=== PATIENT | female | born 1970 | race Two or more races ===

== ENCOUNTER 2019-05-01 16:03 | Day surgery (SDC) | payer OTHER ==
[2019-05-01 18:28] VITALS: TEMP 98.1
[2019-05-01] MEDS ORDERED: FERRIC CARBOXYMALTOSE 750 MG in SODIUM CHLORIDE 250 ML IVPB ONE (18:30)
[2019-05-01 20:01] VITALS: BP 99/60; PULSE 67
== END 2019-05-01 20:02 | disposition home or self-care (01) ==
LOC: JINFUSION 16:03 → J7W 17:54 → JINFUSION 20:02
PROVIDERS: ATTEND Family Medicine
DX: D50.9 Iron deficiency anemia, unspecified (principal)
CPT/HCPCS: 96365; J1439

== ENCOUNTER 2019-05-08 17:44 | Day surgery (SDC) | payer OTHER ==
[2019-05-08] MEDS ORDERED: FERRIC CARBOXYMALTOSE 750 MG in SODIUM CHLORIDE 250 ML IVPB ONE (17:45)
[2019-05-08 18:19] VITALS: TEMP 97.5
[2019-05-08 19:03] VITALS: BP 97/59; PULSE 75
== END 2019-05-08 19:13 | disposition home or self-care (01) ==
LOC: JINFUSION 17:44 → J7W 17:49 → JINFUSION 19:13
PROVIDERS: ATTEND Family Medicine
PROC: 3E033GC Introduction of Other Therapeutic Substance into Peripheral Vein, Percutaneous Approach (ICD-10-PCS; principal; 2019-05-08)
DX: D50.9 Iron deficiency anemia, unspecified (principal)
CPT/HCPCS: 96365; J1439

== ENCOUNTER 2020-01-10 18:42 | Emergency (ER) | payer OTHER ==
[2020-01-10 18:54] VITALS: BP 113/63; PULSE 97; TEMP 97.6; BMI 31.6
[2020-01-10] MEDS ORDERED: ACETAMINOPHEN 1000 MG/100 ML VIAL (NON FORMULARY) IVPB ONE (18:55)
--- NOTE | 2020-01-10 18:56 | PDOC ---
Rapid Medical Evaluation Chief Complaint: Vaginal Bleeding Time Seen by Provider: 01/10/20 18:50 Medical Evaluation: Allergies Allergy/AdvReac Type Severity Reaction Status Date / Time No Known Allergies Allergy Verified 05/01/19 17:50 01/10/20 18:50 Pt presents for heavy vaginal bleeding starting yesterday. She states the bleeding got worse today at 4pm. States she is soaking 5 pads per hour. Sent in by her WATER PUMP SERVICER for evaluation. Exam: suprapubic pain/cramping. Orders: labs, IV, TVUS Pt to proceed to the ER for further evaluation Discharge Disposition - Diagnosis Vaginal bleeding - Referrals - Patient Instructions - Post Discharge Activity
--- NOTE | 2020-01-10 20:13 | PDOC ---
History of Present Illness - General Chief Complaint: Vaginal Bleeding Stated Complaint: VAG BLEEDING 5 pads in one hour Time Seen by Provider: 01/10/20 18:50 - History of Present Illness Initial Comments: 01/10/20 20:13 HPI: 49 y/o F with hx of hypothyroid, anemia, fibroid presenting with lower abd cramps and vaginal bleeding x1 day. Her symptoms were mild yday but today she woke up at 4am with significant pain in the BL lower abd with rad to the back that was similar to her menstrual pain but unrelieved with tylenol. She also had significant vag bleeding throughout the day soaking 10pads; reports clots and bright red blood. Also reports LH but not chest pain, SOB, VALLADARES, dysuria, change in BM. PMHx: as noted above ROS: as noted SHx: Denies tobacco use; no alcohol use; no rec drugs Allergies: NKDA ROS: GENERAL/CONSTITUTIONAL: No fever or chills. No weakness. HEAD, EYES, EARS, NOSE AND THROAT: No change in vision. No ear pain or discharge. No sore throat. CARDIOVASCULAR: No chest pain or shortness of breath RESPIRATORY: No cough, wheezing, or hemoptysis. GASTROINTESTINAL: No nausea, vomiting, diarrhea or constipation. GENITOURINARY: No dysuria, frequency, or change in urination. MUSCULOSKELETAL: No joint or muscle swelling or pain. No neck or back pain. SKIN: No rash NEUROLOGIC: No headache, vertigo, loss of consciousness, or change in strength/sensation. ENDOCRINE: No increased thirst. No abnormal weight change HEMATOLOGIC/LYMPHATIC: No anemia, easy bleeding, or history of blood clots. ALLERGIC/IMMUNOLOGIC: No hives or skin allergy. PE: GENERAL: Awake, alert, and fully oriented, no acute distress HEAD: No signs of trauma, normocephalic, atraumatic EYES: EOMI, sclera anicteric, conjunctiva clear ENT: Auricles normal inspection, hearing grossly normal, nares patent, oropharynx clear without exudates. Moist mucosa NECK: Normal ROM, no lymphadenopathy LUNGS: No increased work of breathing, symmetrical chest rise, clear to auscultation bilaterally, no wheezes, crackles or rhonchi HEART: Regular rate, regular rhythm, normal S1 and S2, no murmur, peripheral pulses 2+ and equal bilaterally. ABDOMEN: Soft, nondistended, nontender. No guarding, no rebound. No masses. No CVAT : Nml appearing external genitalia, with absent lesions. Vaginal vault with blood, no discharge. Cervical os closed. Neg CMT on BM. Neg adenexal ttp, or mass palpated. MUSCULOSKELETAL: FROM NEUROLOGICAL: Cranial nerves II through XII grossly intact. Normal speech, stable gait, no focal sensorimotor deficits SKIN: Warm, Dry, normal turgor, no rashes or lesions noted Past History - Medical History Allergies/Adverse Reactions: Allergies Allergy/AdvReac Type Severity Reaction Status Date / Time No Known Allergies Allergy Verified 01/10/20 18:54 Home Medications: Ambulatory Orders Ascorbic Acid [Vitamin C -] 500 mg PO DAILY 05/01/19 Cholecalciferol (Vitamin D3) [Vitamin D3 -] 2,000 iu PO DAILY 05/01/19 Levothyroxine [Synthroid -] 37.5 mcg PO DAILY 05/01/19 Anemia: Yes COPD: No Thyroid Disease: Yes Other medical history: ONE UTERINE FIBROIDS - Reproductive History Is Patient Now?: No - Psycho-Social/Smoking History Smoking History: Never smoked Have you smoked in the past 12 months: No Information on smoking cessation initiated: No - Substance Abuse Hx (Audit-C & DAST Scrn) How often the patient has a drink containing alcohol: Never Score: In Men: 4 or > Positive; In Women: 3 or > Positive: 0 Screen Result (Pos requires Nsg. Audit-10AR): Negative In the last yr the pt used illegal drug/Rx for NonMed reason: No Score: Yes response is considered Positive: 0 Screen Result (Positive result requires Nsg. DAST-10): Negative *Physical Exam - Vital Signs Last Vital Signs Temp Pulse Resp BP Pulse Ox 97.6 F 97 H 19 113/63 97 01/10/20 18:51 01/10/20 18:51 01/10/20 18:51 01/10/20 18:51 01/10/20 18:51 ED Treatment Course - LABORATORY CBC & Chemistry Diagram: 01/10/20 21:00 01/10/20 21:00 Medical Decision Making - Medical Decision Making 01/10/20 22:28 49 y/o F with hx of hypothyroid, anemia, fibroid presenting with lower abd cramps and vaginal bleeding x1 day. VSS, AF. PE unremarkable -cbc, cmp, t&s, serum perg, TVUS -ofrmev 01/10/20 22:28 labs unremarkable will DC home with trauma director f/u all questions answered patient comfortable with plan Discharge - Discharge Information Problems reviewed: Yes Clinical Impression/Diagnosis: Dysfunctional uterine bleeding Condition: Stable Disposition: HOME - Follow up/Referral Referrals: Mey Clarke MD [Primary Care Provider] - - Patient Discharge Instructions Patient Printed Discharge Instructions: DI for Vaginal Bleeding Additional Instructions: Additional Instructions: Please return to the emergency department with any new or worsening symptoms or concerns including worsening pain, shortness of breath, chest pain Please followup with your electric razor assembler as soon as you can Take tylenol and motrin for pain control. You can take tylenol 650mg-1000mg every 6-8hours as well as motrin/ibuprofen 600mg-800mg every 6-8 hours. Take pepcid 20mg daily to prevent abdominal discomfort - Post Discharge Activity
--- NOTE | 2020-01-10 20:19 | PDOC ---
Attending Attestation - Resident Resident Name: Ochoa Manuel - ED Attending Attestation I have performed the following: I have examined & evaluated the patient, The case was reviewed & discussed with the resident, I agree w/resident's findings & plan - HPI HPI: 01/10/20 21:44 see resident hpi - Physicial Exam PE: 01/10/20 21:44 see resident exam - Medical Decision Making 01/10/20 21:45 49-year-old female complaining of vaginal bleeding with pelvic cramping Patient states she is had recent irregularity and periods and is possibly perimenopausal There is history of fibroids Ultrasound shows no obvious fibroid, myometrium is possibly heterogeneous, there is artifact noted Pain was gradual in onset, is not unilateral and there is no associated fever We will plan for analgesics/NSAIDs and DC with outpatient LEASE ATTENDANT follow-up Discharge - Discharge Information Problems reviewed: Yes Clinical Impression/Diagnosis: Dysfunctional uterine bleeding - Follow up/Referral Referrals: Mey Clarke MD [Primary Care Provider] - - Patient Discharge Instructions - Post Discharge Activity
[2020-01-10] MEDS ORDERED: ACETAMINOPHEN INJECTION 100 ML IVPB ONE (21:05)
[2020-01-10 21:31] LABS: BASO % 0.7 % (0-2.0); EOS % 1.9 % (0-4.5); HEMATOCRIT 40.5 % (32.4-45.2); HEMOGLOBIN 13.7 GM/dL (10.7-15.3); LYMPH % 27.5 % (8-40); MCH 30.1 pg (25.7-33.7); MCHC 33.8 g/dl (32.0-36.0); MEAN CELL VOLUME 89.1 fl (80-96); MEAN PLT VOLUME 8.1 fl (7.5-11.1); MONO % 7.6 % (3.8-10.2); NEUT % 62.3 % (42.8-82.8); PLATELET COUNT 244 K/MM3 (134-434); RBC 4.55 M/mm3 (3.60-5.2); RDW 13.1 % (11.6-15.6); WHITE BLOOD COUNT 10.4 K/mm3 (4.0-10.0)
[2020-01-10 21:44] LABS: INR 0.97 (0.83-1.09); PROTHROMBIN TIME (PATIENT) 11.5 SEC (9.7-13.0)
[2020-01-10 22:01] LABS: ALBUMIN 3.8 g/dl (3.4-5.0); BILIRUBIN,TOTAL 0.4 mg/dL (0.2-1); BLOOD UREA NITROGEN 11.3 mg/dL (7-18); CALCIUM 8.6 mg/dL (8.5-10.1); CREATININE 0.7 mg/dL (0.55-1.3); POTASSIUM 3.9 mmol/L (3.5-5.1)
== END 2020-01-11 00:30 | disposition home or self-care (01) ==
LOC: JER 18:42
PROC: 3E0333Z Introduction of Anti-inflammatory into Peripheral Vein, Percutaneous Approach (ICD-10-PCS; principal; 2020-01-10)
DX: N93.8 Other specified abnormal uterine and vaginal bleeding (principal)
CPT/HCPCS: 36415; 76830-TC; 80053; 84703; 85025; 85610; 86850; 86900; 86901; 99284-25; J0131